=== PATIENT | female | born 1990 | race Caucasian/White ===

== ENCOUNTER → 2020-01-28 11:19 | Outpatient (POV) | payer BC, SELFPAY | PROVIDERS: PCP Family Medicine; Visit Provider Dermatology | DX: Z00.00 Encounter for general adult medical examination without abnormal findings (principal) ==

== ENCOUNTER → 2020-09-22 12:01 | Outpatient (CLI) | payer BC, SELFPAY ==
[2020-09-22 13:05] LABS: Basophils # 0.1 K/mm3 (0-0.2); Basophils % 1.1 % (0.1-2.0); Eosinophils # 0.2 K/mm3 (0.0-0.4); Eosinophils % 3.3 % (0.1-12.0); Hematocrit 45.6 % (37.0-47.0); Hemoglobin 14.9 g/dL (12.2-16.2); Lymphocytes # 1.7 K/mm3 (0.7-4.5); Lymphocytes % 38.8 % (10-50); Mean Corpuscular HGB Conc 32.7 g/dL (31.8-35.4); Mean Corpuscular Hemoglobin 29.7 pg (27.0-31.2); Mean Corpuscular Volume 90.9 fl (81-99); Mean Platelet Volume 8.2 fl (7.4-10.4); Monocytes # 0.3 K/mm3 (0.1-1.0); Monocytes % 5.8 % (1.7-9.3); Neutrophils # 2.3 K/mm3 (1.8-7.8); Platelet Count 226 K/mm3 (142-424); Red Blood Count 5.01 M/mm3 (4.20-5.40); White Blood Count 4.5 K/mm3 (4.8-10.8)
== END ==
PROVIDERS: PCP Nurse Practitioner; Visit Provider Nurse Practitioner
DX: Z20.822 Contact with and (suspected) exposure to COVID-19 (principal); J06.9 Acute upper respiratory infection, unspecified
CPT/HCPCS: 36415; 85025; U0003

== ENCOUNTER → 2021-07-05 13:19 | Outpatient (CLI) | payer BC, SELFPAY | PROVIDERS: PCP Family Medicine; Visit Provider Nurse Practitioner | DX: Z20.822 Contact with and (suspected) exposure to COVID-19 (principal) | CPT/HCPCS: C9803; U0003; U0005 ==

== ENCOUNTER → 2022-02-08 15:01 | Outpatient (POV) | payer BC, SELFPAY | PROVIDERS: Visit Provider Dermatology | DX: Z00.00 Encounter for general adult medical examination without abnormal findings (principal) ==

== ENCOUNTER → 2022-04-15 15:46 | Outpatient (CLI) | payer BC, SELFPAY ==
[2022-04-15 17:48] LABS: HCG,Quantitative 51 mIU/ml (0-5.42)
== END ==
PROVIDERS: PCP Family Medicine; Visit Provider Student in an Organized Health Care Education/Training Program
DX: Z32.00 Encounter for pregnancy test, result unknown (principal); N92.6 Irregular menstruation, unspecified
CPT/HCPCS: 36415; 84702

== ENCOUNTER → 2022-04-17 15:29 | Outpatient (CLI) | payer BC, SELFPAY ==
[2022-04-17 16:28] LABS: HCG,Quantitative 146 mIU/ml (0-5.42)
== END ==
PROVIDERS: PCP Family Medicine; Visit Provider Student in an Organized Health Care Education/Training Program
DX: Z32.01 Encounter for pregnancy test, result positive (principal); N92.6 Irregular menstruation, unspecified
CPT/HCPCS: 36415; 84702

== ENCOUNTER → 2022-04-19 15:58 | Outpatient (CLI) | payer BC, SELFPAY ==
[2022-04-19 20:28] LABS: HCG,Quantitative 369 mIU/ml (0-5.42)
[2022-04-21 11:20] LABS: Progesterone 53.6 ng/mL (.)
== END ==
PROVIDERS: PCP Family Medicine; Visit Provider Student in an Organized Health Care Education/Training Program
DX: N92.6 Irregular menstruation, unspecified (principal)
CPT/HCPCS: 36415; 84144; 84702

== ENCOUNTER 2022-05-08 12:31 | Emergency (ER) | payer OTHER, BC, SELFPAY ==
[2022-05-08 12:33] VITALS: BP 163/93; PULSE 81; RESP 18; TEMP 36.8; O2SAT 100; BMI 29.1
--- NOTE | 2022-05-08 12:38 | PC.NURSE ---
ED MD AT BEDSIDE TO EVALUATE PT
--- NOTE | 2022-05-08 12:47 | PC.NURSE ---
LAB NOTIFIED OF BLOOD DRAW
--- NOTE | 2022-05-08 12:49 | PC.NURSE ---
RADIOLOGY NOTIFIED OF US ORDER
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
[2022-05-08 13:00] VITALS: BP 134/65; PULSE 75; RESP 18; O2SAT 99
--- NOTE | 2022-05-08 13:15 | PC.NURSE ---
PT UPDATED ON POC, AWAITING US AT THIS TIME
[2022-05-08 13:19] LABS: HCG Qualitative, Serum Positive (Negative)
[2022-05-08 13:25] VITALS: BP 134/65; PULSE 88; O2SAT 100
--- NOTE | 2022-05-08 13:26 | PC.NURSE ---
UA COLLECTED AND SENT TO LAB, PT TO RADIOLOGY AT THIS TIME FOR US
--- NOTE | 2022-05-08 13:29 | PC.NURSE ---
called lab with new orders
--- NOTE | 2022-05-08 13:29 | PC.NURSE ---
Urine collected and sent to lab by Veronica
--- NOTE | 2022-05-08 13:30 | PC.NURSE ---
Pt to US at this time.
[2022-05-08 13:34] LABS: Microscopic, Urine URINE MICROSCOPIC (MICROSCOPIC)
[2022-05-08 13:38] LABS: Appearance,Urine CLEAR (Clear); Bilirubin,Urine Negative (Negative); Blood, Urine Negative (Negative); Color,Urine YELLOW (Yellow); Glucose,Urine (UA) Negative (Negative); Ketones,Urine Negative (Negative); Leukocyte Esterase,Urine Negative (Negative); Nitrate,Urine Negative (Negative); Protein,Urine Negative (Negative); Urobilinogen,Urine 0.2 EU/dl (0.2)
[2022-05-08 13:50] LABS: Amorphous Sediment,Urine Trace /lpf; Bacteria,Urine Trace /lpf
--- NOTE | 2022-05-08 14:01 | PC.NURSE ---
PT RETURNED FROM US, REPORT GIVEN TO DR. BURLESON PER KIA FROM RADIOLOGY
--- NOTE | 2022-05-08 14:02 | PC.NURSE ---
pt returned from US
[2022-05-08 14:08] LABS: HCG,Quantitative 57732 mIU/ml (0-5.42)
--- NOTE | 2022-05-08 14:09 | PC.NURSE ---
ROUNDED ON PT AT THIS TIME. UPDATED ON POC. PT PROVIDED WATER. NO FURTHER NEEDS AT THIS TIME. CALL LIGHT WITHIN REACH. AT BEDSIDE
--- NOTE | 2022-05-08 14:21 | PC.NURSE ---
DR. BURLESON AT BEDSIDE TO DISCUSS POC AND DISCHARGE
[2022-05-08 14:27] VITALS: BP 134/65; PULSE 88; RESP 18; TEMP 36.7; O2SAT 100
== END 2022-05-08 14:30 | disposition home or self-care (01) ==
PROVIDERS: Emergency Provider Student in an Organized Health Care Education/Training Program; PCP Family Medicine
DX: O26.891 Other specified pregnancy related conditions, first trimester (principal); R10.30 Lower abdominal pain, unspecified; Z3A.01 Less than 8 weeks gestation of pregnancy; V87.7XXA Person injured in collision between other specified motor vehicles (traffic), initial encounter
CPT/HCPCS: 76817; 81001; 84702; 84703; 86850; 99283

== ENCOUNTER 2023-02-15 19:27 | Emergency (ER) | payer BC, SELFPAY ==
[2023-02-15 19:28] VITALS: BP 156/83; PULSE 75; RESP 18; TEMP 36.5; O2SAT 99; BMI 36.8
--- NOTE | 2023-02-15 19:46 | XR_ITS ---
PROCEDURE INFORMATION: Exam: XR Right Tibia and Fibula Exam date and time: 02/15/2023 7:44 PM Age: 32 years old Clinical indication: Injury or trauma; Fall; Blunt trauma; Lower leg; Right; Additional info: Inversion injury, pain TECHNIQUE: Imaging protocol: Radiologic exam of the right tibia and fibula. Views: 2 views. COMPARISON: No relevant prior studies available. FINDINGS: Bones/joints: Osseous alignment is normal. No acute fracture. Mild degenerative changes noted of the ankle. Soft tissues: Normal. IMPRESSION: No acute fracture
--- NOTE | 2023-02-15 19:46 | XR_ITS ---
PROCEDURE INFORMATION: Exam: XR Right Ankle Exam date and time: 02/15/2023 7:45 PM Age: 32 years old Clinical indication: Injury or trauma; Fall; Blunt trauma; Ankle; Right; Additional info: Inversion injury, pain TECHNIQUE: Imaging protocol: Radiologic exam of the right ankle. Views: 3 or more views. COMPARISON: CR XR TIBIA FIBULA RT 2V 02/15/2023 7:44 PM FINDINGS: Bones/joints: Mild degenerative changes of the ankle joint. Osseous alignment is normal. No acute fracture. Soft tissues: Mild lateral soft tissue swelling. No radiodense foreign body. IMPRESSION: No acute fracture
--- NOTE | 2023-02-15 19:46 | XR_ITS ---
PROCEDURE INFORMATION: Exam: XR Right Foot Exam date and time: 02/15/2023 7:46 PM Age: 32 years old Clinical indication: Injury or trauma; Fall; Blunt trauma; Foot; Right; Additional info: Inversion injury, pain TECHNIQUE: Imaging protocol: Radiologic exam of the right foot. Views: 3 or more views. COMPARISON: CR XR ANKLE RT MIN 3V 02/15/2023 7:45 PM FINDINGS: Bones/joints: Normal. Soft tissues: Normal. IMPRESSION: No acute findings.
--- NOTE | 2023-02-15 19:49 | HMH.EDGENADL ---
Discharge Plan Disposition Patient Disposition: Home, Self-Care Condition: Good Prescriptions Prescriptions: New acetaminophen 500 mg capsule 500 mg PO Q4H PRN (Reason: pain) Qty: 30 0RF ibuprofen 800 mg tablet 800 mg PO Q8H PRN (Reason: pain) Qty: 30 0RF No Action metformin 500 mg tablet PO oseltamivir [Tamiflu] 75 mg capsule 75 mg PO BID 5 Days Qty: 10 0RF Referrals Follow up/Referrals: Samy Doan JR, MD [Physician] - See instructions James Perez MD [Primary Care Provider] - See instructions Activity Restrictions/Add. Instructions Additional Instructions/Restrictions: You were evaluated in the emergency department today. At this time, x-rays are not concerning for fracture. Sometimes, subtle fractures can be missed on initial x-rays. If you have persistent pain and difficulty bearing weight, I advise that you follow-up with orthopedics for further evaluation and management. They may need to get further imaging of your ankle. We are providing you with information for Dr. Doan should you need to call and schedule an appointment. We are providing you with a walking boot to use as needed for support. Rest, ice, and elevate the area to help with pain. Alternate Tylenol and ibuprofen or take them both together at home as needed for symptoms. Use your crutches as needed if you are unable to bear weight. Return to the emergency department for any new or worsening symptoms. Clinical Impressions Clinical Impression: Right ankle strain Qualifiers: Encounter type: initial encounter Qualified Code(s): S96.911A - Strain of unspecified muscle and tendon at ankle and foot level, right foot, initial encounter Instructions Patient Instructions: DI for Ankle Sprain, DI for Ankle Pain Discharge ED Provider: Maddy Sanford General Adult HPI General Chief complaint: Extremity Injury, Lower Stated complaint: AO 02/15 1845, RT ankle Time Seen by Provider: 02/15/23 19:33 History of Present Illness HPI narrative: This patient is a 32-year-old female with a history of remote right ankle fracture presenting to the emergency department for evaluation with concern for right ankle pain. Of note, the patient is currently breast-feeding and had a approximately 6 weeks ago. Patient reports that she was walking up to her house when she stepped in a hole, rolling her right ankle. She fell to invert and felt immediate pain. She has significant pain with weightbearing and is unable to bear all of her weight on that foot. Given this, she came to the emergency department for evaluation. No other injuries noted. She took Motrin at home with good improvement in her pain. Related Data Home Medications Medication Instructions Recorded Confirmed metformin 500 mg tablet mg PO 09/22/19 Previous Rx's Medication Instructions Recorded oseltamivir 75 mg capsule (Tamiflu) 75 mg PO BID positive influenza A 09/22/19 5 days #10 caps acetaminophen 500 mg capsule 500 mg PO Q4H PRN pain #30 caps 02/15/23 ibuprofen 800 mg tablet 800 mg PO Q8H PRN pain #30 tabs 02/15/23 Allergies Allergy/AdvReac Type Severity Reaction Status Date / Time No Known Allergies Allergy Verified 09/22/19 14:21 [facility] Disclaimer: The information contained in this section may have been updated after the patient was seen, as this information can be updated by other users. Social History Smoking Status: Never smoker alcohol intake: never substance use type: denies use current occupational status: employed Travel in the last 8 weeks: None household members: family housing: house ROS Obtained: Yes All systems reviewed & no additional complaints except as documented Physical Exam General General appearance: alert and in no apparent distress Head Head exam: atraumatic and normocephalic Eye Eye exam: Present normal appearance, PERRL
--- NOTE | 2023-02-15 20:44 | PC.NURSE ---
rounded on patient, no needs at this time, family at bedside call light within reach
[2023-02-15 21:11] VITALS: BP 151/74; PULSE 67; RESP 18; TEMP 36.5; O2SAT 99
--- NOTE | 2023-02-16 19:28 | PC.NURSE ---
chart accessed for ortho paper info
== END 2023-02-15 21:16 | disposition home or self-care (01) ==
PROVIDERS: Emergency Provider Emergency Medicine; PCP Family Medicine
DX: S96.911A Strain of unspecified muscle and tendon at ankle and foot level, right foot, initial encounter (principal); X50.1XXA Overexertion from prolonged static or awkward postures, initial encounter
CPT/HCPCS: 73590; 73610; 73630; 99284

== ENCOUNTER → 2023-04-20 14:33 | Outpatient (CLI) | payer BC, SELFPAY ==
--- OUTSIDE RECORDS SUMMARY | 2023-04-21 14:35 | XMS_ITS ---
Care Plan - [facility], [facility] Created on: April 21, 2023 NiranjanLeesaAngie : 1990 Sex: Female Author Name Unknown Address [address] [place] [address] Phone Organization [facility] Address [address] [place] [address] Phone Care Team Providers Care Test Hole Driller Name Role Phone Preeti TRIPP, Pawel Unavailable [phone]
--- OUTSIDE RECORDS SUMMARY | 2023-04-21 14:36 | XMS_ITS | Patient Health Record ---
Author Name Unknown Organization [facility] Address [address] [address] Care Team Providers Care Records Management Engineer Name Role Phone Nick Heather Unavailable [phone] Neela Mcgarry Unavailable [phone] Ana Lafleur CMA Unavailable [phone] Kavya Chan Unavailable [phone] Angie Rutherford Unavailable [phone] PROBLEMS Type Condition ICD9-CM Code LFF43-UY Code Onset Dates Condition Status W/U Status Risk SNOMED Code Notes Problem Supervision of high risk , unspecified, third trimester O09.93 confirmed [id number] Problem Gestational hypertension, third trimester O13.3 confirmed [id number] Problem Previous delivery affecting O34.219 confirmed [id number] Problem History of classical section Z98.891 confirmed [id number] ALLERGIES No Known Allergies ENCOUNTERS from 1990 to 2023-04-21 Encounter Location Date Provider Diagnosis [facility] [address] [facility] [address] [place] [address] Dec, Neela Mcgarry Routine follow-up Z39.2 [facility]
== END ==
PROVIDERS: PCP Student in an Organized Health Care Education/Training Program; Visit Provider Student in an Organized Health Care Education/Training Program
DX: J02.9 Acute pharyngitis, unspecified (principal); B95.4 Other streptococcus as the cause of diseases classified elsewhere
CPT/HCPCS: 87070

== ENCOUNTER → 2023-05-30 15:57 | Outpatient (POV) | payer BC, SELFPAY | PROVIDERS: PCP Family Medicine; Visit Provider Dermatology | DX: Z00.00 Encounter for general adult medical examination without abnormal findings (principal) ==

== ENCOUNTER → 2023-06-20 23:30 | Outpatient (CLI) | payer BC, SELFPAY ==
[2023-06-20 18:40] LABS: Basophils % 0.7 % (0.1-2.0); Eosinophils # 0.2 K/mm3 (0.0-0.4); Hemoglobin 16.1 g/dL (12.2-16.2); Lymphocytes # 2.4 K/mm3 (0.7-4.5); Lymphocytes % 37.6 % (10-50); Mean Corpuscular HGB Conc 34.1 g/dL (31.8-35.4); Mean Corpuscular Hemoglobin 30.2 pg (27.0-31.2); Mean Corpuscular Volume 88.4 fl (81-99); Mean Platelet Volume 7.9 fl (7.4-10.4); Monocytes # 0.4 K/mm3 (0.1-1.0); Monocytes % 6.1 % (1.7-9.3); Neutrophils # 3.3 K/mm3 (1.8-7.8); Neutrophils % 52.6 % (37.0-80.0); Platelet Count 219 K/mm3 (142-424); Red Blood Count 5.32 M/mm3 (4.20-5.40); Red Cell Distribution Width 13.7 % (11.5-17.5); White Blood Count 6.3 K/mm3 (4.8-10.8)
[2023-06-20 18:52] LABS: Alanine Aminotransferase 42 U/L (12-78); Albumin Level 4.5 g/dl (3.5-5.0); Albumin/Globulin Ratio 1.5 (1.1-1.8); Alkaline Phosphatase 55 U/L (38-126); Anion Gap 10.8 mEq/L (5-15); Aspartate Amino Transferase 38 U/L (14-36); Bilirubin,Total 0.5 mg/dl (0.2-1.3); Blood Urea Nitrogen 11 mg/dl (7-17); Calcium 8.8 mg/dl (8.4-10.2); Carbon Dioxide 28 mmol/L (22.0-30.0); Chloride 101 mmol/L (98-107); Chol/HDL Ratio 6.3 (1-3.5); Cholesterol 232 mg/dl (140-200); Estimated Glomerular Filt Rate 82 ml/min (>60); GFR (African American) 99 ML/MIN (>60); Glucose 85 mg/dl (74-100); HDL Cholesterol 37 mg/dl (40-60); Potassium 3.8 mmoL/L (3.5-5.1); Sodium 136 mmol/L (136-145); Total Protein,Serum 7.5 g/dl (6.3-8.2); Triglycerides 163 mg/dl (30-150); VLDL Cholesterol 33 mg/dL (0-40)
[2023-06-20 19:03] LABS: Direct LDL Cholesterol 161.47 mg/dL (100-129)
[2023-06-20 19:14] LABS: 25-OH Vitamin D, Total 42.3 ng/mL (30-100)
[2023-06-20 19:16] LABS: Hemoglobin A1C 5.1 % (4.0-6.0)
[2023-06-20 19:25] LABS: Thyroid Stimulating Hormone 0.51 uIU/mL (0.465-4.68)
[2023-06-20 19:44] LABS: Vitamin B12 707 pg/mL (239-931)
== END ==
PROVIDERS: PCP Nurse Practitioner; Visit Provider Nurse Practitioner
DX: Z68.38 Body mass index [BMI] 38.0-38.9, adult (principal); E28.2 Polycystic ovarian syndrome; E78.5 Hyperlipidemia, unspecified; E66.9 Obesity, unspecified; Z00.00 Encounter for general adult medical examination without abnormal findings; Z86.32 Personal history of gestational diabetes; Z79.899 Other long term (current) drug therapy
CPT/HCPCS: 80053; 80061; 82306; 82607; 83036; 84443; 85025

== ENCOUNTER 2023-11-02 11:06 | Outpatient (CLI) | payer BC, SELFPAY ==
[2023-11-02 18:19] LABS: Adenovirus,PCR Not Detected (NotDetected); Coronavirus 19, PCR Not Detected (NotDetected); Coronavirus 229E Not Detected (NotDetected); Coronavirus NL63 Not Detected (NotDetected); Coronavirus OC43 Not Detected (NotDetected); Coronovirus HKU1,PCR Not Detected (NotDetected); Human Metapneumovirus Not Detected (NotDetected); Influenza A, PCR Not Detected (NotDetected); Influenza AH1, 2009 Not Detected (NotDetected); Influenza AH1, PCR Not Detected (NotDetected); Influenza AH3,PCR Not Detected (NotDetected); Influenza B, PCR Not Detected (NotDetected); Parainfluenza 1, PCR Not Detected (NotDetected); Parainfluenza 2, PCR Not Detected (NotDetected); Parainfluenza 3, PCR Not Detected (NotDetected); Parainfluenza 4, PCR Not Detected (NotDetected); Respiratory Syncytial Virus Not Detected (NotDetected); Rhinovirus/Enterovirus Not Detected (NotDetected)
== END 2023-11-02 23:59 | disposition home or self-care (01) ==
LOC: LAB.DROPOF 11-03 11:07
PROVIDERS: PCP Nurse Practitioner; Visit Provider Nurse Practitioner
DX: J06.9 Acute upper respiratory infection, unspecified (principal); R09.89 Other specified symptoms and signs involving the circulatory and respiratory systems; R05.9 Cough, unspecified; R06.2 Wheezing
CPT/HCPCS: 87632; 87635

== ENCOUNTER 2023-12-26 20:10 | Outpatient (CLI) | payer BC, SELFPAY ==
[2023-12-26 21:24] LABS: Basophils # 0.1 K/mm3 (0-0.2); Basophils % 1.8 % (0.1-2.0); Eosinophils # 0.2 K/mm3 (0.0-0.4); Eosinophils % 3.5 % (0.1-12.0); Hematocrit 50.1 % (37.0-47.0); Hemoglobin 16.2 g/dL (12.2-16.2); Lymphocytes # 1.9 K/mm3 (0.7-4.5); Lymphocytes % 37.4 % (10-50); Mean Corpuscular HGB Conc 32.2 g/dL (31.8-35.4); Mean Corpuscular Hemoglobin 30.2 pg (27.0-31.2); Mean Corpuscular Volume 93.8 fl (81-99); Mean Platelet Volume 9.1 fl (7.4-10.4); Monocytes # 0.3 K/mm3 (0.1-1.0); Monocytes % 5.7 % (1.7-9.3); Neutrophils # 2.6 K/mm3 (1.8-7.8); Neutrophils % 51.6 % (37.0-80.0); Platelet Count 225 K/mm3 (142-424); Red Blood Count 5.35 M/mm3 (4.20-5.40); Red Cell Distribution Width 13.7 % (11.5-17.5); White Blood Count 5.1 K/mm3 (4.8-10.8)
[2023-12-26 21:32] LABS: Creatinine,Urine Random 215 mg/dL (Not Estab.)
[2023-12-26 21:36] LABS: Microalbumin/Creatinine Ratio 3.5
[2023-12-26 22:00] LABS: Alanine Aminotransferase 62 U/L (12-78); Albumin Level 4.5 g/dl (3.5-5.0); Albumin/Globulin Ratio 1.7 (1.1-1.8); Alkaline Phosphatase 47 U/L (38-126); Anion Gap 15.4 mEq/L (5-15); Aspartate Amino Transferase 50 U/L (14-36); Bilirubin,Total 0.6 mg/dl (0.2-1.3); Blood Urea Nitrogen 19 mg/dl (7-17); Calcium 9.2 mg/dl (8.4-10.2); Carbon Dioxide 28 mmol/L (22.0-30.0); Chloride 102 mmol/L (98-107); Chol/HDL Ratio 5.1 (1-3.5); Cholesterol 216 mg/dl (140-200); Estimated Glomerular Filt Rate 71 ml/min (>60); GFR (African American) 86 ML/MIN (>60); Globulin 2.6 g/dL (1.3-3.2); Glucose 82 mg/dl (74-100); HDL Cholesterol 42 mg/dl (40-60); Potassium 4.4 mmoL/L (3.5-5.1); Sodium 141 mmol/L (136-145); Total Protein,Serum 7.1 g/dl (6.3-8.2); Triglycerides 83 mg/dl (30-150); VLDL Cholesterol 17 mg/dL (0-40)
[2023-12-26 22:10] LABS: Direct LDL Cholesterol 147.32 mg/dL (100-129)
[2023-12-26 22:16] LABS: 25-OH Vitamin D, Total 38.5 ng/mL (30-100)
[2023-12-26 22:30] LABS: Thyroid Stimulating Hormone 0.58 uIU/mL (0.465-4.68)
[2023-12-26 22:50] LABS: Vitamin B12 417 pg/mL (239-931)
== END 2023-12-26 23:59 | disposition home or self-care (01) ==
LOC: LAB.DROPOF 20:11
PROVIDERS: PCP Nurse Practitioner; Visit Provider Nurse Practitioner
DX: E78.5 Hyperlipidemia, unspecified (principal); O13.9 Gestational [pregnancy-induced] hypertension without significant proteinuria, unspecified trimester; Z68.35 Body mass index [BMI] 35.0-35.9, adult; E66.9 Obesity, unspecified
CPT/HCPCS: 80050; 80053; 80061; 82043; 82306; 82570; 82607; 83036; 84443; 85025

== ENCOUNTER 2024-05-23 15:42 | Outpatient (CLI) | payer BC, SELFPAY ==
[2024-05-23 15:59] LABS: Basophils # 0.1 K/mm3 (0-0.2); Basophils % 1.6 % (0.1-2.0); Eosinophils # 0.3 K/mm3 (0.0-0.4); Eosinophils % 3.4 % (0.1-12.0); Hematocrit 45.4 % (37.0-47.0); Hemoglobin 15.7 g/dL (12.2-16.2); Lymphocytes # 2.5 K/mm3 (0.7-4.5); Lymphocytes % 34.1 % (10-50); Mean Corpuscular HGB Conc 34.6 g/dL (31.8-35.4); Mean Corpuscular Hemoglobin 29.8 pg (27.0-31.2); Mean Corpuscular Volume 86.1 fl (81-99); Mean Platelet Volume 7.7 fl (7.4-10.4); Monocytes # 0.4 K/mm3 (0.1-1.0); Monocytes % 5.2 % (1.7-9.3); Neutrophils # 4.1 K/mm3 (1.8-7.8); Neutrophils % 55.8 % (37.0-80.0); Platelet Count 244 K/mm3 (142-424); Red Blood Count 5.27 M/mm3 (4.20-5.40); Red Cell Distribution Width 13.6 % (11.5-17.5); White Blood Count 7.4 K/mm3 (4.8-10.8)
[2024-05-23 16:20] LABS: Alanine Aminotransferase 25 U/L (12-78); Albumin Level 4.7 g/dl (3.5-5.0); Albumin/Globulin Ratio 2.1 (1.1-1.8); Alkaline Phosphatase 33 U/L (38-126); Anion Gap 12.1 mEq/L (5-15); Aspartate Amino Transferase 24 U/L (14-36); Bilirubin,Total 0.5 mg/dl (0.2-1.3); Blood Urea Nitrogen 20 mg/dl (7-17); Calcium 9.4 mg/dl (8.4-10.2); Carbon Dioxide 28 mmol/L (22.0-30.0); Chloride 104 mmol/L (98-107); Estimated Glomerular Filt Rate 71 ml/min (>60); GFR (African American) 86 ML/MIN (>60); Globulin 2.2 g/dL (1.3-3.2); Glucose 78 mg/dl (74-100); Potassium 4.1 mmoL/L (3.5-5.1); Sodium 140 mmol/L (136-145); Total Protein,Serum 6.9 g/dl (6.3-8.2)
[2024-05-23 16:43] LABS: HCG,Quantitative < 2 mIU/ml (0-5.42)
[2024-05-23 16:51] LABS: Thyroid Stimulating Hormone 0.71 uIU/mL (0.465-4.68)
[2024-05-25 12:11] LABS: Estradiol 56.2 pg/mL (.); FSH 3.6 mIU/mL (.); Prolactin 15.6 ng/mL (4.8-33.4); Testosterone,Total 15 ng/dL (8-60)
== END 2024-05-23 23:59 | disposition home or self-care (01) ==
LOC: LAB 15:44
PROVIDERS: PCP Physician Assistant; Visit Provider Obstetrics & Gynecology
DX: N91.2 Amenorrhea, unspecified (principal); N97.0 Female infertility associated with anovulation; R79.89 Other specified abnormal findings of blood chemistry
CPT/HCPCS: 36415; 80050; 80053; 82670; 83001; 84146; 84403; 84443; 84702; 85025

== ENCOUNTER 2024-08-07 09:15 | Outpatient (CLI) | payer BC, SELFPAY ==
[2024-08-07 18:02] LABS: Basophils % 0.8 % (0.1-2.0); Eosinophils # 0.2 K/mm3 (0.0-0.4); Eosinophils % 4.9 % (0.1-12.0); Hematocrit 47.8 % (37.0-47.0); Hemoglobin 15.9 g/dL (12.2-16.2); Lymphocytes # 1.8 K/mm3 (0.7-4.5); Lymphocytes % 38.6 % (10-50); Mean Corpuscular HGB Conc 33.3 g/dL (31.8-35.4); Mean Corpuscular Hemoglobin 29.6 pg (27.0-31.2); Mean Corpuscular Volume 88.8 fl (81-99); Mean Platelet Volume 10.5 fl (7.4-10.4); Monocytes # 0.3 K/mm3 (0.1-1.0); Monocytes % 5.5 % (1.7-9.3); Neutrophils # 2.4 K/mm3 (1.8-7.8); Neutrophils % 49.8 % (37.0-80.0); Platelet Count 232 K/mm3 (142-424); Red Blood Count 5.38 M/mm3 (4.20-5.40); Red Cell Distribution Width 12.5 % (11.5-17.5); White Blood Count 4.7 K/mm3 (4.8-10.8)
[2024-08-07 18:43] LABS: Alanine Aminotransferase 28 U/L (12-78); Albumin Level 4.3 g/dl (3.5-5.0); Albumin/Globulin Ratio 1.9 (1.1-1.8); Alkaline Phosphatase 44 U/L (38-126); Anion Gap 12.2 mEq/L (5-15); Aspartate Amino Transferase 28 U/L (14-36); Bilirubin,Total 0.2 mg/dl (0.2-1.3); Blood Urea Nitrogen 16 mg/dl (7-17); Carbon Dioxide 30 mmol/L (22.0-30.0); Chloride 103 mmol/L (98-107); Chol/HDL Ratio 5.2 (1-3.5); Cholesterol 193 mg/dl (140-200); Estimated Glomerular Filt Rate 81 ml/min (>60); GFR (African American) 98 ML/MIN (>60); Globulin 2.3 g/dL (1.3-3.2); Glucose 81 mg/dl (74-100); HDL Cholesterol 37 mg/dl (40-60); Potassium 4.2 mmoL/L (3.5-5.1); Sodium 141 mmol/L (136-145); Total Protein,Serum 6.6 g/dl (6.3-8.2); Triglycerides 108 mg/dl (30-150); VLDL Cholesterol 22 mg/dL (0-40)
[2024-08-07 18:54] LABS: Direct LDL Cholesterol 137.33 mg/dL (100-129)
[2024-08-07 19:00] LABS: Hemoglobin A1C 4.8 % (4.0-6.0)
[2024-08-07 19:06] LABS: 25-OH Vitamin D, Total 30.7 ng/mL (30-100)
[2024-08-07 19:17] LABS: Thyroid Stimulating Hormone 0.34 uIU/mL (0.465-4.68)
[2024-08-07 19:36] LABS: Vitamin B12 510 pg/mL (239-931)
== END 2024-08-07 23:59 | disposition home or self-care (01) ==
LOC: LAB.DROPOF 08-08 10:19
PROVIDERS: PCP Nurse Practitioner; Visit Provider Nurse Practitioner
DX: E78.5 Hyperlipidemia, unspecified (principal); E66.9 Obesity, unspecified; Z68.32 Body mass index [BMI] 32.0-32.9, adult
CPT/HCPCS: 80053; 80061; 82306; 82607; 83036; 84443; 85025

== ENCOUNTER 2024-08-09 13:12 | Outpatient (CLI) | payer BC, SELFPAY ==
--- NOTE | 2024-08-09 13:16 | MM_ITS ---
PROCEDURE INFORMATION: Exam: US Left Breast, Complete MG Bilateral Diagnostic Breast Tomosynthesis Exam date and time: 08/09/2024 1:34 PM Age: 34 years old Clinical indication: Left breast pain; Left breast palpable lump TECHNIQUE: Imaging protocol: Complete ultrasound of all four quadrants of the left breast and the retroareolar regions, including ultrasound of the axilla when performed. Bilateral Diagnostic tomosynthesis and 2D mammography including computer-aided detection (CAD) when performed. Unilateral or bilateral exam. COMPARISON: US BREAST LT COMPLETE 08/09/2024 1:34 PM FINDINGS: MAMMOGRAPHY: Breast composition: There are scattered areas of fibroglandular density. Breast mammogram findings: There is no stellate mass, architectural distortion or suspicious microcalcifications in either breast to suggest malignancy. No skin thickening or axillary adenopathy. A skin marker was placed over an area of palpable concern in the left upper outer quadrant ULTRASOUND: Breast ultrasound findings: Sonographic images of the left breast including the retroareolar region, all 4 quadrants and the axilla do not demonstrate any solid or cystic masses. This is with particular attention to the 2 o'clock axis 2 cm from the nipple where the patient reports a palpable abnormality. No architectural distortion or acoustical shadowing. No skin thickening or axillary adenopathy. IMPRESSION: Palpable abnormality in the left breast corresponds both mammographically and sonographically to normal fibroglandular structures. There is no mammographic evidence of malignancy. Further evaluation of a palpable abnormality should be based on clinical grounds regardless of radiographic findings or lack thereof. Annual bilateral mammographic screening is recommended to commence at the age of 40 unless otherwise clinically indicated.. ASSESSMENT: BI-RADS Category 1: Negative.
== END 2024-08-09 23:59 | disposition home or self-care (01) ==
LOC: RAD 13:12
PROVIDERS: PCP Nurse Practitioner; Visit Provider Obstetrics & Gynecology
DX: N64.4 Mastodynia (principal); N63.21 Unspecified lump in the left breast, upper outer quadrant; Z80.3 Family history of malignant neoplasm of breast
CPT/HCPCS: 76641; 77062; 77066; G0279

== ENCOUNTER 2024-12-23 09:57 | Outpatient (CLI) | payer BC, SELFPAY ==
--- OUTSIDE RECORDS SUMMARY | 2024-02-17 05:00 | XMS_ITS ---
Author Organization [facility] Address [address] [place] [address] Care Team Providers Care Urology Teacher Name Role Phone Rylie Ansari Unavailable [phone] Migration, Provider Unavailable Unavailable Allergies Allergen (clinical drug ingredient) Drug/Non Drug Allergy documented on EMR Reaction Allergy Type Onset Date Status Medications: NO KNOWN DRUG ALLERGIES (uncoded) Unspecified Allergy Active Medications Medication SIG (Take, Route, Frequency, Duration) Notes Start Date End Date Status Femara 2 tablets oral qd 04/11/2020 A ctive Provera 1 tablet oral QD 10/16/2018 Ac tive Letrozole 1 tablet oral QD Act siva medroxyPROGESTERone Acetate 1 tablet oral QD 04/11 Active metFORMIN HCl ER 0 Tablet oral 04/11/2020 Active Social History Tobacco Use: Social History Observation Description Date Smoking Status WARNING: Information temporarily unavailable Sex Assigned At : Social History Observation Description Sex Assigned At Female Social History Drugs/Alcohol: Social Info Question Answer Notes Drugs Have you used drugs other than those for medical reasons in the past 12 months? Never 04/09/2020 - 12/01/2015 - Alcohol Screen Did you have a drink containing alcohol in the past year? Never 04/09/2020 - 10/04/2017 - 12/01/2015 - Household: Social Info Question Answer Notes Household Marital status: Tobacco Use: Social Info Question Answer Notes Tobacco Control (Standard) Tobacco use: Never 0 12/01/2015 - Additional Details Category Social Info Options Details Miscellaneous: Occupation: Teacher Travel outside of the [place]: Travel History: Uses seat belts 04/09/2020 - Encounters Encounter Location Date Provider Diagnosis [facility] [address] [place] [address] 02/17/2024 Provider Migration Plan Of Treatment No Information Progress Notes * Angie UREÑADOB: [birth year] (34 yo F)Acc No.[id number]:02/17/2024 Patient: Angie GOSS :1990 A ge:33 Y S ex:Female Address:[address] [place] [address], [place] [address] Subjective: * Chief Complaints: * Medical History: *NO SIGNIFICANT GENETIC HISTORY 7 [place]: Last Pap Smear 01/13/2016 - 12/2006-wnl, 02/03/2015 pap/dna-neg. 7 [place]: Lifetime Sexual Partner 7 [place]: Heterosexual Elevated Blood Pressure Reading: had high BP during my first and have had it periodically since. Mostly due to stress. Hypertension, Benign Essential PCOS, polycystic ovaries Irregular Menses Hypertension, Transient Antepartum, Mild: 07/18/2013 vitamin * Conference Service Coordinator History: M enstrual History: A ge of Onset: 1 2, LMP: 0 01/26/2020. S exual Activity/Contraception: C ontraception: N one. * OB History: P regnancy History (GPA) T otal Pregnancies 2 , F ull Term 2 , P remature?0, A B. Induced 0 , A B. Spontaneous 0 , E ctopics 0 , M ultiple Births 0 , L iving 2 . G P G ravida: 2 , P shira: 2 . P regnancy # 1: A nesth :Epidural BirthDate :05/28/2015 BirthLbs :6 BirthOzs :3 Comment :Induced for PIH; c/s for arrest of descent and tachycardia. Spontaneous subgaleal bleed. to childrens : 18 days in NICU Weight: 6.3 DeliveryType :C-Sect. GA :39 LaborLength :16 Place :[facility] PTL :N Sex :M. P regnancy # 2: B irthDate :06/28/2016 BirthLbs :6 BirthOzs :6 Comment :36+6 was scheduled for 37+1 but due to lack of movement from baby we went ahead and delivered Weight: 6.6 DeliveryType :C-Sect. GA :36 Place :[place] PTL :N Sex :F. * Surgical History: section 2012,2016 [facility] * Family History: F amily History Verified.. Diabetes Mellitus, Type II, Father: Hypertension, Benign Essential, Heart Disease, heart attack, Grandfather (maternal): Stroke (cerebrovascular), , Diabetes Mellitus, Type Unspecified, grandfather, Grandmother (maternal): Breast Cancer, family HX, Age of Onset: 68, @ 80, Hypercholesterolemia (Isolated). * Social History: T obacco Use: T obacco Control (Standard) T obacco use: N ever 12/01/2015 -. D rugs/Alcohol: D rugs H ave you used drugs other than those for medical reasons in the past 12 months??Never 04/09/2020 - 12/01/2015 -. A lcohol Screen D id you have a drink containing alcohol in the past year? N ever 04/09/2020 - 10/04/2017 - 12/01/2015 -. M iscellaneous: O ccupation: Teacher. Travel outside of the [place]: Travel History: Uses seat belts 04/09/2020 -. H ousehold: [place] Em arital status: . * Medications: T akingProvera(medroxyPROGESTERone Acetate) 1 tablet oral QD Femara(Letrozole) 2 tablets oral qd Letrozole 1 tablet oral QD medroxyPROGESTERone Acetate 1 tablet oral QD metFORMIN HCl ER 0 Tablet oral Taking Provera(medroxyPROGESTERone Acetate) 1 tablet oral QD Taking Femara(Letrozole) 2 tablets oral qd Taking Letrozole 1 tablet oral QD Taking medroxyPROGESTERone Acetate 1 tablet oral QD Taking metFORMIN HCl ER 0 Tablet oral * Allergies: M edications: NO KNOWN DRUG ALLERGIES: Unspecified - AllergyyesAllergies Verified. * * Date:
[2024-12-23 20:17] LABS: Albumin Level 4.3 g/dl (3.5-5.0); Chloride 108 mmol/L (98-107)
[2024-12-23 20:18] LABS: Potassium 4.3 mmoL/L (3.5-5.1); Sodium 139 mmol/L (136-145)
[2024-12-23 20:20] LABS: Alanine Aminotransferase 28 U/L (12-78); Anion Gap 7.3 mEq/L (5-15); Aspartate Amino Transferase 26 U/L (14-36); Blood Urea Nitrogen 16 mg/dl (7-17); Carbon Dioxide 28 mmol/L (22.0-30.0); Estimated Glomerular Filt Rate 81 ml/min (>60); GFR (African American) 98 ML/MIN (>60)
[2024-12-23 20:21] LABS: Albumin/Globulin Ratio 1.6 (1.1-1.8); Alkaline Phosphatase 49 U/L (38-126); Bilirubin,Total 0.4 mg/dl (0.2-1.3); Calcium 9.2 mg/dl (8.4-10.2); Chol/HDL Ratio 5.4 (1-3.5); Cholesterol 228 mg/dl (140-200); Globulin 2.7 g/dL (1.3-3.2); Glucose 79 mg/dl (74-100); HDL Cholesterol 42 mg/dl (40-60); Triglycerides 105 mg/dl (30-150); VLDL Cholesterol 21 mg/dL (0-40)
[2024-12-23 20:39] LABS: Direct LDL Cholesterol 149.86 mg/dL (100-129)
[2024-12-23 20:46] LABS: Thyroid Stimulating Hormone 0.74 uIU/mL (0.465-4.68)
--- OUTSIDE RECORDS SUMMARY | 2024-12-24 15:20 | XMS_ITS | Clinical Summary ---
Author Organization [facility] Address [address] [place] [address] Care Team Providers Care Home Child Care Provider Name Role Phone Maurilio Perez M.D. Primary Care Provider [phone] Source Comments [facility] is fully rolled out with thefollowing exceptions:General Clinical Research [facility] Allergies No known active allergies Medications Tganbm-EwCpy-Gys-F A-DHA w/o A (NEXA PLUS) 29-1.25-350 MG CAPS 04/26/2013 Active Active Problems Problem Noted Date Diagnosed Date Suppressed 06/25/2013 PCOS (polycystic ovarian syndrome) 06/25/2013 Family History Medical History Relation Name Comments Ankyloglossia Neg Hx Asthma Neg Hx Food Allergy Neg Hx Social History Tobacco Use Types Packs/Day Years Used Date Smoking Tobacco: Never Alcohol Use Standard Drinks/Week Comments No 0 (1 standard drink = 0.6 oz pur e alcohol) Comments Unknown Sex and Gender Information Value Date Recorded Sex Assigned at Not on file Legal Sex Female 2:40 PM EST Gender Identity Not on file Sexual Orientation Not on file Plan of Treatment Health Maintenance Due Date Last Done Comments MMR IMMUNIZATION (1 of 1 - S tandard series) 02/27/1989 DTAP/Tdap/Td IMMUNIZATION (1 - Tdap) 02/27/1995 VARICELLA IMMUNIZATION (1 of 2 - 13+ 2-dose series) 02/27/2001 HEPATITIS B IMMUNIZATION (1 of 3 - 19+ 3-dose series) 02/27/2007 COVID-19 Vaccine (2023-2 5 season) 2024 AMB SEASONAL FLU VACCINE (Se ason Ended) 2025 HIB IMMUNIZATION Aged Out No longer e ligible based on patient's age to complete this topic HPV IMMUNIZATION Aged Out No longer e ligible based on patient's age to complete this topic IPV IMMUNIZATION Aged Out No longer e ligible based on patient's age to complete this topic MCV4 IMMUNIZATION Aged Out No longer eligible based on patient's age to complete this topic MENINGOCOCCAL B VACCINE Aged Out No l onger eligible based on patient's age to complete this topic PNEUMOCOCCAL IMMUNIZATION Aged Out No longer eligible based on patient's age to complete this topic Respiratory Syncytial Virus (RSV) <20mo Aged Out No longer eligible b ased on patient's age to complete this topic Care Teams Home Child Care Provider Relationship Specialty Start Date End Date Maurilio Perez M.D. [address] [place] [address] PCP - General External Medicine 06/21/13
--- OUTSIDE RECORDS SUMMARY | 2024-12-24 15:20 | XMS_ITS | Patient Health Record ---
Author Organization [facility] Address [address] [place] [address] Care Team Providers Care Bottle Labeler Name Role Phone Rylie Ansari Unavailable [phone] Migration, Provider Unavailable Unavailable Allergies Allergen (clinical drug ingredient) Drug/Non Drug Allergy documented on EMR Reaction Allergy Type Onset Date Status Medications: NO KNOWN DRUG ALLERGIES (uncoded) Unspecified Allergy Active Reason For Referral No Information Medications Medication SIG (Take, Route, Frequency, Duration) Notes Start Date End Date Status Femara 2 tablets oral qd 04/11/2020 A ctive Active Provera 1 tablet oral QD 10/16/2018 Ac tive Letrozole 1 tablet oral QD Act siva medroxyPROGESTERone Acetate 1 tablet oral QD 04/11 Active metFORMIN HCl ER 0 Tablet oral 04/11/2020 Active Social History Tobacco Use: Social History Observation Description Date Details (start date - stop date) Never Smoker NA - NA Sex Assigned At : Social History Observation Description Sex Assigned At Female Social History Drugs/Alcohol: Social Info Question Answer Notes Drugs Have you used drugs other than those for medical reasons in the past 12 months? No Alcohol Screen Did you have a drink containing alcohol in the past year? Yes Points 0 Interpretation Negative Tobacco Use: Social Info Question Answer Notes Tobacco Use/Smoking Are you a nonsmoker Problems Problem Type SNOMED Code ICD Code Onset Dates Problem Status W/U Status Risk Notes Problem High risk (68674266) Supervision of high risk , unspecified, third trimester (O09.93) Active confirmed Problem -induce d hypertension (disorder) (13729628) Gestational hypertension, third trimester (O13.3) Active confirmed Problem History of section (519057189) Previous delivery affecting (O34.219) Active confirmed Problem History of classical section (Z98.891) Active confirmed Encounters Encounter [facility] Date [facility] [address] [facility] [facility] [facility] [address] [place] [address] 02/17/2024 Provider Migration Plan Of Treatment No Information Insurance Providers Payer Name Payer Address Payer Phone Subscriber Number Group Number Insured Name Patient Relationship to Insured Coverage Start Date Coverage End Date Ryan KELELYO [address] [place] [address] [id number] Angie Ureña Self - patient is the insured Medical (General) History Medical History History ICD Code 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 7 [place]: Lifetime Sexual Partner 7 [place]dock: Heterosexual Elevated Blood Pressure Read ing: had high BP during my first and have had it periodically since. Mostly due to stress. Hypertension, Benign Essential PCOS, polycystic ovaries Irregular Menses Hypertension, Transient Antepartum, Mild : 07/18/2013 Surgical History Surgery Date(Month/Year) section 2012,2015 [place] [facility] Hospitalization History Reason Date(Month/Year) C-Sectionx3
--- OUTSIDE RECORDS SUMMARY | 2024-12-24 15:20 | XMS_ITS | Clinical Summary ---
Author Organization [facility] Address [facility] [place] [address] Phone Care Team Providers Care Edge Molder Name Role Phone Neo Perez Primary Care Provider [phone] Allergies No known active allergies Medications VIT #91/FE FUM/FA/DHA ( + DHA ORAL) Take by mouth. Activ e MULTIVIT-MINERA LS/FOLIC ACID (DAILY GUMMIES ORAL) Take 2 Caps by mouth daily. Active oxyCODONE-aceta minophen (PERCOCET) 5-325 mg Oral Tablet Take 1-2 Tabs by mouth every 4 hours as needed for Pain (For moderate to severe pain unrelieved by oral non-opioid). 20 Tab 6 Active metFORMIN (GLUCOPHAGE) 500 mg Oral Tablet Take 1 Tab by mouth 2 times daily. 60 Tab 11 6 Active Immunizations Immunization Administration Dates Next Due MMR 07/01/2016(Deferred: - patient i mmune),05/30/2013 Tdap 05/24/2016,05/04/2013 Surgical History Surgery Date Site/Laterality Comments WISDOM TOOTH EXTRACTION 2007 SECTION 05/28/2013 - 05/29/2013 N/A primary section Low transverse uterine incision at 2323; Surgeon: Kae Blackwell MD; [facility]; Service: Gynecology SECTION 06/28/2016 N/A REPEAT SECTION (38) MATERNAL MEDICINE RECOMMENDED 37 WEEK DELIVERY with low transverse uterine incisioin at 1728; Surgeon: Kae Blackwell MD; [facility]; Service: Gynecology Medical History Medical History Date Comments Hypertension elevated BP in p ast and with 2013 Family History Medical History Relation Name Comments Heart Disease Father High Blood Pressure Father High Cholesterol Father Diabetes Maternal Grandfather Stroke Maternal Grandfather Cancer Maternal Grandmother breast & lung ca No Known Problems Mother Heart Disease Paternal Grandfather High Blood Pressure Paternal Grandmother Relation Name Status Comments Father Alive Maternal Grandfather Maternal Grandmother Mother Alive Paternal Grandfather Paternal Grandmother Alive Social History Tobacco Use Types Packs/Day Years Used Date Smoking Tobacco: Never Smokeless Tobacco: Never Alcohol Use Standard Drinks/Week Comments No 0 (1 standard drink = 0.6 oz pur e alcohol) Comments No Sex and Gender Information Value Date Recorded Sex Assigned at Not on file Legal Sex Female 7:25 AM EDT Gender Identity Not on file Sexual Orientation Not on file Obstetrics History Para Term AB IAB SAB Ectopic Multiple Livin g Live Births 3 2 1 1 0 2 2 Date Outcome GA Total Labor Labor/2nd/3rd Weight Sex Type Anes PTL Mervat A1 A5 Name Clin 2012 Term 39w 1d 6 lb 3 oz (2.807 kg) M CSP Epidur al Livin g 7 9 [place]OL[place] R BABY A Franklyn Hughes MD Delivery Location:[facility] 2015 36w 6d 0h 01m 0h 01m 6 lb 6 oz (2.892 kg) F SHOP CLERK Spinal N Livin g 8 9 [place] WOLFE R GIRL Franklyn Hughes MD Delivery Location:[facility] Last Filed Vital Signs Vital Sign Reading Time Taken Comments Blood Pressure 133/69 07/01/2016 9:00 AM EST Pulse 81 07/01/2016 9:00 AM EST Temperature 36.4 C (97.5 F) 07/01/2016 7:44 AM EST Respiratory Rate 18 07/01/2016 9:00 AM EST Oxygen Saturation 100% 07/01/2016 9:00 AM EST Inhaled Oxygen Concentration - - Weight 98 kg (216 lb) 06/28/2016 2:18 PM EST Height 162.6 cm (5' 4 ) 06/28/2016 2:18 PM EST Body Mass Index 37.08 06/28/2016 2:18 PM EST Plan of Treatment Health Maintenance Due Date Last Done Comments Annual Wellness Exam 02/27/1991 Hepatitis B Vaccine (1 of 3 - 19+ 3-dose series) 02/27/2007 Cervical Cancer Screening 02/27/2009 Pap Smear 02/27/2009 HPV/Pap Cotest 02/27/2018 COVID-19 Vaccine ( - 2023-2 5 season) 2024 Influenza Vaccine (Season Ended) 2025 DTaP/TDaP/Td (3 - Td or Tdap) 05/24/2026, 05/04/2013 Meningococcal B Vaccine Aged Out No l onger eligible based on patient's age to complete this topic Pneumococcal Vaccine 0-49 Aged Out No longer eligible based on patient's age to complete this topic Insurance Advance Directives For more information, please contact: [phone] * Full Code (Latest Code Status on File) Date Activated Date Inactivated Comments 06/28/2016 2:41 PM 07/01/2016 5:04 PM * Full Code Date Activated Date Inactivated Comments 05/28/2013 6:49 AM 05/30/2013 6:50 PM Care Teams Edge Molder Relationship Specialty Start Date End Date Neo Perez [address] [place] [address] PCP - General 07/23/10
== END 2024-12-23 23:59 | disposition home or self-care (01) ==
LOC: LAB.DROPOF 12-24 15:13
PROVIDERS: PCP Nurse Practitioner; Visit Provider Nurse Practitioner
DX: E66.9 Obesity, unspecified (principal); E78.5 Hyperlipidemia, unspecified
CPT/HCPCS: 80053; 80061; 84443

== ENCOUNTER 2025-06-24 15:39 | Outpatient (CLI) | payer BC, SELFPAY ==
--- NOTE | 2025-06-24 15:50 | ECG_ITS ---
APPROVED REPORT Exam: Resting ECG HR:62 bpm ECG Measurements Heart Rate 62 AXES NC 165 P 23 QRSd 87 QRS 61 QT 381 T 37 QTc 387 Conclusion SINUS RHYTHM WITH SINUS ARRHYTHMIA NORMAL ECG UNCONFIRMED REPORT Electronically signed by : Flakito Nazario MD 06/25/2025 08:32:32
== END 2025-06-24 23:59 | disposition home or self-care (01) ==
LOC: RT 15:40
PROVIDERS: PCP Nurse Practitioner; Visit Provider Nurse Practitioner
DX: I47.10 Supraventricular tachycardia, unspecified (principal); I49.8 Other specified cardiac arrhythmias
CPT/HCPCS: 93005; 93225; 93227

== ENCOUNTER 2025-07-04 11:08 | Outpatient (CLI) | payer BC, SELFPAY ==
--- OUTSIDE RECORDS SUMMARY | 2025-07-04 11:11 | XMS_ITS ---
Care Plan - [facility], [facility] Created on: July 04, 2025 Angie Ureña : 1990 Sex: Female Author Organization [facility] Address [address] [place] [address] Phone Care Team Providers Care Handbag Designer Name Role Phone Pawel Álvarez MD Unavailable
--- OUTSIDE RECORDS SUMMARY | 2025-07-04 11:11 | XMS_ITS | Clinical Summary ---
Author Organization [facility] Address [facility] [place] [address] Phone Care Team Providers Care S3B Multi Sensor Operator Name Role Phone Neo Perez Primary Care Provider Allergies No known active allergies Medications VIT [...] at 2323; Surgeon: Kae Blackwell MD; Location: [facility]; Service: Gynecology SECTION 06/28/2016 N/A [...] R BABY A Franklyn Hughes MD Delivery Location:[facility] 2015 36w 6d 0h 01m 0h 01m 6 lb 6 oz (2.892 kg) F NUCLEAR WEAPONS CUSTODIAN Spinal N Livin g 8 9 [place] GIRL Franklyn Hughes MD Delivery Location:[facility] Last Filed Vital Signs Vital Sign Reading [...] HPV/Pap Cotest 02/27/2018 COVID-19 Vaccine ( - 2024-2 6 season) 2025 Influenza Vaccine (#1) 2025 DTaP/TDaP/Td (3 - Td or Tdap) 05/24/2026, 05/04/2013 Meningococcal B Vaccine Aged Out No l onger eligible based on patient's age to complete this topic Pneumococcal Vaccine 0-49 Aged Out No longer eligible based on patient's age to complete this topic Insurance Advance Directives For more information, please contact: [phone] * Full Code (Latest Code Status on File) Date Activated Date Inactivated Comments 06/28/2016 2:41 PM 07/01/2016 5:04 PM * Full Code Date Activated Date Inactivated Comments 05/28/2013 6:49 AM 05/30/2013 6:50 PM Care Teams S3B Multi Sensor Operator Relationship Specialty Start Date End Date Neo Perez [address] [place] [address] PCP - General 07/23/10
--- OUTSIDE RECORDS SUMMARY | 2025-07-04 11:11 | XMS_ITS ---
Author Organization [facility] Address [address] [place] [id number] Phone Care Team Providers Care Washer Machine Name Role Phone Pawel Álvarez MD Unavailable Plan of Treatment No Plan of Treatment Recorded Assessments Includes: Assessments for all patient encounters No Assessments Recorded Medical Equipment - Implanted Devices Includes: Current and historical Devices No Medical Equipment Recorded Medications Administered Includes: Administered Medications in patient's chart No Administered Medications Recorded Results Includes: Results from 07/04/2024 through 07/04/2025 No Results Recorded For Specified Dates Social History Description Last Updated Sex - Female 03/06/2023 Last Documented On 3 4:46PM ; [facility] Smoking Status Unknown Medical History Includes: Medical History in patient's chart No Medical History Recorded Family History Includes: Family History in patient's chart No Family History Recorded Care Washer Machine Name (Identifier) Role/Relation Location/Telecom Last Documented By Pawel Álvarez MD ([id number]) Assigned practitioner (occupation) [address] [place], [place], , [address] tel: Last Documented On 03/06/2023 4:46PM ; [facility] Payer Includes: Active Insurance Policies Plan Name (Payer ID) Coverage Type Member ID Group # Subscriber (ID) Relationship Effective Dates 1 - [facility] ([id number]) [id number] Angie Niranjan Self Last Documented On 3 8:45AM ; [facility]
--- OUTSIDE RECORDS SUMMARY | 2025-07-04 11:11 | XMS_ITS | Clinical Summary ---
Author Organization [facility] Address [address] [place] [id number] Care Team Providers Care Financial Adviser Name Role Phone James Perez MD Primary Care Provider Allergies No known active allergies Medications Vit-Fe Fumarate-FA ( COMPLETE PO) Take 1 tablet by mouth Daily. Active labetalol (NORMODYNE) 200 MG tablet Take 1 tablet by mouth 3 (Three) Times a Day. 08/11/2022 Active docusate sodium 100 MG capsule Take 1 capsule by mouth 2 (Two) Times a Day As Needed for Constipation . 30 capsule 12/01/2022 12:27 PM EDT 12/01/2022 Active ibuprofen (ADVIL,MOTRIN) 600 MG tablet Take 1 tablet by mouth Every 6 (Six) Hours. 60 tablet 12/01/2022 12:27 PM EDT 12/01/2022 Active Active Problems Problem Noted Date Diagnosed Date Delivery of third by section using transverse incision of lower segment of uterus 11/29/2022 anemia 11/29/2022 Chronic hypertension affecting 023 Previous section 06/08/2022 Assessment & Plan (08/26/2022 9:35 AM EST): PREVIOUS CLASSICAL WITH G1 DELIVERY History of gestational hypertension Overview (06/08/2022): in 2012 Resolved Problems Problem Noted Date Diagnosed Date Resolved Date Term 11/14/2022 11/29/2022 06/08/2022 11/29/2022 Social History Tobacco Use Types Packs/Day Years Used Date Smoking Tobacco: Never Smokeless Tobacco: Never Alcohol Use Standard Drinks/Week Comments Not Currently 0 (1 standard drink = 0.6 oz pure alcohol) occasional use when not AUDIT-C Answer Date Recorded Q1: How often do you have a drink containing alcohol? Never 11/28/2022 Q2: How many drinks containi ng alcohol do you have on a typical day when you are drinking? Patient does not drink Q3: How often do you have si x or more drinks on one occasion? Never 11/28/2022 [place] Depression Scale Answer Date Recorded [place] Depression Scale Total 1 11/29/2022 The thought of harming myself has occurred to me . Unrecognized value 11/29/2022 Abuse Screen Answer Date Recorded Unsafe at Home or Work/School Not on file Feels Threatened by Someone? Not on file Does Anyone Keep You from Co ntacting Others or Doint Things Outside the Home? Not on file 12/05/2023 Physical Sign of Abuse Present Not on file 0 12/05/2023 Housing Stability Answer Date Recorded Current Living Arrangements Not on file 11/15 Potentially Unsafe Housing Conditions Not on lino e 12/05/2023 Family and Community Support Answer Landon e Recorded Help with Day-to-Day Activities Not on file 04/28/2023 Lonely or Isolated Not on file 04/28/2023 Employment Answer Date Recorded Do you want help finding or keeping work or a chris b? Not on file 04/28/2023 Disabilities Answer Date Recorded Concentrating, Remembering, or Making Decisions Difficulty Not on file 12/05/2023 Doing Errands Independently Difficulty Not on fi le 12/05/2023 Education Answer Date Recorded Help with school or training? Not on file Preferred Language Not on file 11/28/2023 Comments No Sex and Gender Information Value Date Recorded Sex Assigned at Not on file Legal Sex Female 10:15 AM EDT Gender Identity Not on file Sexual Orientation Not on file Last Filed Vital Signs Vital Sign Reading Time Taken Comments Blood Pressure 128/72 12/01/2022 7:58 AM EDT Pulse 77 12/01/2022 7:58 AM EDT Temperature 36.8 C (98.2 F) 12/01/2022 7:58 AM EDT Respiratory Rate 16 12/01/2022 7:58 AM EDT Oxygen Saturation 99% 11/28/2022 2:30 PM EDT Inhaled Oxygen Concentration - - Weight 102 kg (224 lb) 11/28/2022 10:50 AM EDT Height 162.6 cm (5' 4 ) 11/28/2022 10:50 AM EDT Body Mass Index 38.45 11/28/2022 10:50 AM EDT Plan of Treatment Health Maintenance Due Date Last Done Comments Annual Gynecologic Pelvic and Breast Exam 1990 ANNUAL PHYSICAL 05/16/2022 INFLUENZA VACCINE 02/14/2025 06/23/2022, , 04/29/2019, Additional history exists TDAP/TD VACCINES (3 - Td or Tdap) 05/24/2026 05/24/2016, 05/04/2013 HEPATITIS C SCREENING Completed 05/16/2022 Pneumococcal Vaccine 0-49 Aged Out No longer eligible based on patient's age to complete this topic Procedures Procedure Name Priority Date/Time Associated Diagnosis Comments HEPATITIS C ANTIBODY Routine 05/16/2022 10:25 AM EDT Medication exposure during first trimester of from Last 3 Months or Most Recently Relevant to Health Maintenance Results * Hepatitis C Antibody (05/16/2022 10:25 AM EDT) Hepatitis C Ab Non-Reacti ve Non-Reacti ve 05/16/2022 3:01 PM EDT [facility] Blood Venipuncture / Unknown 05/16/2022 10:25 AM EDT 05/16/2022 10:25 AM EDT Narrative [facility] - 05/16/2022 3:01 PM EDT Results may be falsely decreased if patient taking Biotin. us Neela Mcgarry MD LAB BLOOD ORDERABLES Final Re sult [facility]
[address] [place] [address], from Last 3 Months or Most Recently Relevant to Health Maintenance [place] [address] [place] [address] EMPLOYEE Advance Directives Documents on File Type Date Recorded Patient Manager Operating Expl anation LIVING WILL - SCAN 11/25/2022 9:50 AM STEFANIE NICOLE, BHLEX, 11/20/2022 * CPR (Attempt to Resuscitate) (Latest Code Status on File) Date Activated Date Inactivated Comments 11/28/2022 3:11 PM 12/01/2022 3:19 PM Question Answer Comments Code Status (Patient has no pulse and is not breathing): CPR (Attempt to Resuscitate) Medical Interventions (Patie nt has pulse or is breathing): Full * CPR (Attempt to Resuscitate) Date Activated Date Inactivated Comments 11/28/2022 11:10 AM 11/28/2022 3:11 PM Question Answer Comments Code Status (Patient has no pulse and is not breathing): CPR (Attempt to Resuscitate) Medical Interventions (Patie nt has pulse or is breathing): Full Support Level Of Support Discussed With: Patient Care Teams Financial Adviser Relationship Specialty Start Date End Date James Perez MD [facility], [id number] [place] [facility] [address] [place] [address] PCP - General Family Medicine 11/25/22
[2025-07-04 12:44] LABS: Thyroid Stimulating Hormone 0.60 uIU/mL (0.465-4.68)
== END 2025-07-04 23:59 | disposition home or self-care (01) ==
LOC: LAB 11:09
PROVIDERS: PCP Nurse Practitioner; Visit Provider Obstetrics & Gynecology
DX: E28.2 Polycystic ovarian syndrome (principal); E66.9 Obesity, unspecified; N97.0 Female infertility associated with anovulation; R79.89 Other specified abnormal findings of blood chemistry
CPT/HCPCS: 36415; 84443